=== PATIENT | male | born 1960 | race African-American/Black ===

== ENCOUNTER 2021-05-14 21:14 | Emergency (ER) | payer BC, OTHER ==
[2021-05-14 21:28] VITALS: TEMP 96.2; BMI 23.8
[2021-05-14 22:18] VITALS: BP 162/87; PULSE 87
[2021-05-14 22:45] LABS: BASO % 0.6 % (0-2.0); EOS % 4.4 % (0-4.5); HEMATOCRIT 33.5 % (35.4-49); HEMOGLOBIN 10.9 GM/dL (11.7-16.9); LYMPH % 14.5 % (8-40); MCH 32.8 pg (25.7-33.7); MCHC 32.6 g/dl (32.0-35.9); MEAN CELL VOLUME 100.6 fl (80-96); MEAN PLT VOLUME 9.8 fl (7.5-11.1); MONO % 11.6 % (3.8-10.2); NEUT % 68.9 % (42.8-82.8); PLATELET COUNT 186 10^3/uL (134-434); RBC 3.33 M/mm3 (4.00-5.60); RDW 20.4 % (11.9-15.9); WHITE BLOOD COUNT 6.5 K/mm3 (4.0-10.0)
[2021-05-14 23:01] LABS: ALBUMIN 3.2 g/dl (3.4-5.0); BLOOD UREA NITROGEN 29.2 mg/dL (7-18)
[2021-05-14 23:04] LABS: CREATININE 4.4 mg/dL (0.55-1.3)
[2021-05-14 23:06] LABS: BILIRUBIN,TOTAL 0.7 mg/dL (0.2-1); TOT PROT 7.8 g/dl (6.4-8.2)
== END 2021-05-14 23:33 | disposition left against medical advice (07) ==
LOC: JER 21:14
DX: E09.65 Drug or chemical induced diabetes mellitus with hyperglycemia (principal)
CPT/HCPCS: 36415; 80053; 82550; 82553; 82962; 84484; 85025; 99284-25